=== PATIENT | male | born 1985 | race African-American/Black ===

== ENCOUNTER 2019-09-24 10:41 | Emergency (ER) | payer MEDICAID, OTHER ==
[~2019-09-24] VITALS: Ht 193 cm; Wt 77.1 kg
[2019-09-24] MEDS ORDERED: ALBUTEROL SULF 2.5 MG/0.5ML(0.5%) NEB SOLN HHN STA (10:55)
[2019-09-24] MEDS ORDERED: IPRATROPIUM BROM 0.5 MG/2.5ML INH SOL NEB ONE (11:00)
[2019-09-24 11:39] VITALS: BP 119/71
== END 2019-09-24 12:07 | disposition home or self-care (01) ==
LOC: ER 10:41
DX: J45.901 Unspecified asthma with (acute) exacerbation (principal); Z76.0 Encounter for issue of repeat prescription
CPT/HCPCS: 94640; 99283; J7644

== ENCOUNTER 2020-12-19 04:54 | Emergency (ER) | payer MEDICAID ==
[~2020-12-19] VITALS: Ht 193 cm; Wt 65.8 kg
[2020-12-19 07:35] VITALS: BP 117/63
[2020-12-19] MEDS ORDERED: IPRATROPIUM BROM 0.5 MG/2.5ML INH SOL NEB ONE (08:00)
[2020-12-19] MEDS ORDERED: ALBUTEROL SULF 2.5 MG/0.5ML(0.5%) NEB SOLN NEB ONE (08:00)
== END 2020-12-19 09:08 | disposition home or self-care (01) ==
LOC: ER 04:54 → EDBD 04:54 → ER 09:04
DX: J45.901 Unspecified asthma with (acute) exacerbation (principal); F17.210 Nicotine dependence, cigarettes, uncomplicated
CPT/HCPCS: 71045; 94640; 99283; J7644

== ENCOUNTER 2021-01-09 11:09 | Emergency (ER) | payer MEDICAID ==
[~2021-01-09] VITALS: Ht 193 cm; Wt 63.5 kg
[2021-01-09 11:11] VITALS: BP 111/74
== END 2021-01-09 13:17 | disposition left against medical advice (07) ==
LOC: ER 11:09
DX: J45.901 Unspecified asthma with (acute) exacerbation (principal); Z53.21 Procedure and treatment not carried out due to patient leaving prior to being seen by health care provider